=== PATIENT | male | born 1925 | race Caucasian/White ===

== ENCOUNTER 2016-08-31 23:38 | Emergency (ER) | payer MEDICARE, BC ==
[2016-08-31 23:48] VITALS: TEMP 97
[2016-09-01] MEDS ORDERED: HYDRALAZINE HYDROCHLORIDE 20 MG/ML SOL IV PRN ×2 (00:08→00:36)
[2016-09-01] MEDS ORDERED: LABETALOL HYDROCHLORIDE 5 MG/ML SOL IV ONE ×2 (00:10→00:28)
[2016-09-01] MEDS ORDERED: HYDRALAZINE HYDROCHLORIDE 20 MG/ML SOL ONE (00:17)
[2016-09-01] MEDS ORDERED: SODIUM CHLORIDE 0.9% FLUSH 10 ML SOL IV PRN (00:35)
[2016-09-01 03:13] VITALS: BP 142/67; PULSE 73; RESP 22; O2SAT 96
== END 2016-09-01 01:45 | disposition home or self-care (01) | DRG 151 ==
LOC: ED 23:38
DX: R04.0 Epistaxis (principal); I10 Essential (primary) hypertension; I16.9 Hypertensive crisis, unspecified
CPT/HCPCS: 99284; J0360